=== PATIENT | male | born 1970 | race Caucasian/White ===

== ENCOUNTER 2025-01-07 11:47 | Emergency (ER) | payer BC ==
[~2025-01-07] VITALS: Ht 182.9 cm; Wt 100.0 kg
[2025-01-07 11:50] VITALS: O2SAT 96
[2025-01-07 12:50] LABS: BASOPHILS % 0.8 % (0.0-2.0); EOSINOPHILS % 1.9 % (0.0-5.0); HEMATOCRIT. 47.6 % (42.0-52.0); HEMOGLOBIN. 16.5 g/dL (14.0-18.0); LYMPHOCYTES % 22.1 % (20.0-50.0); MEAN CORPUSCULAR HEMOGLOBIN 30.1 pg (28.0-32.0); MEAN CORPUSCULAR HGB CONC 34.7 g/dL (31.0-37.0); MEAN CORPUSCULAR VOLUME 86.9 fL (80.0-94.0); MEAN PLATELET VOLUME 9.4 fl (7.4-10.4); NEUTROPHILS % 69.2 % (40.0-76.0); PLATELET 207 x1000/uL (130-400); RED BLOOD CELL COUNT 5.48 mill/uL (4.7-6.1); RED CELL DISTRIBUTION WIDTH 13.9 % (11.6-14.6)
[2025-01-07 12:51] LABS: CHLORIDE 100 mEq/L (98-107); POTASSIUM 4.4 mEq/L (3.5-5.1); SODIUM 138 mEq/L (136-145)
[2025-01-07 12:52] LABS: CALCIUM 10.9 mg/dL (8.7-10.4); CARBON DIOXIDE 21 mEq/L (21-32)
[2025-01-07 12:57] LABS: GLUCOSE 183 mg/dL (70-105); UREA NITROGEN BLOOD 13 mg/dL (9-23)
[2025-01-07 12:59] LABS: TROPONIN I HIGH SENSITIVITY < 4 ng/L (3.0-53)
[2025-01-07] MEDS: SODIUM CHLORIDE 0.9% 1,000 ML IV ONE (13:03)
[2025-01-07] MEDS: PANTOPRAZOLE SODIUM 40 MG/VIAL IV ONE (13:03)
[2025-01-07] MEDS: ONDANSETRON HCL 4MG/2ML INJ IV ONE (13:03)
[2025-01-07 15:33] LABS: TROPONIN I HIGH SENSITIVITY < 4 ng/L (3.0-53)
[2025-01-07] MEDS: DIAZEPAM 5 MG TABLET PO ONE (17:00)
[2025-01-07] MEDS ORDERED: PANT40SU MT (17:01)
[2025-01-07] MEDS ORDERED: TOPUD MT (17:01)
[2025-01-07] MEDS ORDERED: MAG-55 MT (17:01)
[2025-01-07] MEDS ORDERED: ONDA4TAB50 MT (17:01)
[2025-01-07 18:43] VITALS: BP 129/74; PULSE 116; RESP 20; TEMP 36.9; O2SAT 92
== END 2025-01-07 18:45 | disposition home or self-care (01) ==
LOC: ER 11:47
DX: R11.2 Nausea with vomiting, unspecified (principal); F12.10 Cannabis abuse, uncomplicated; F41.9 Anxiety disorder, unspecified; Z79.899 Other long term (current) drug therapy
CPT/HCPCS: 80048; 83690; 85025; 84484; 36415; 93005; 96365; 96375; 99285; J2405; J2470; J7030; Z7610